=== PATIENT | female | born 1985 | race Caucasian/White ===

== ENCOUNTER 2016-06-07 22:50 | Emergency (ER) | payer OTHER ==
[~2016-06-07] VITALS: Ht 152.4 cm; Wt 70.0 kg
[2016-06-07 22:55] VITALS: BP 137/93; PULSE 99; RESP 20; TEMP 98.9; O2SAT 95
[2016-06-07] MEDS ORDERED: ZOFR4TAB3 SL (23:17)
[2016-06-07] MEDS ORDERED: PAXI10TA2 PO (23:17)
[2016-06-07] MEDS ORDERED: OMEGCAP PO (23:17)
[2016-06-07] MEDS ORDERED: PANT40TA3 PO (23:17)
[2016-06-07] MEDS ORDERED: VITA100T13 PO (23:17)
[2016-06-07] MEDS ORDERED: CHLO25CA2 PO (23:17)
[2016-06-07 23:37] LABS: AUTOMATED NEUTROPHIL # 4.4 TH/MM3 (1.8-7.7); BASOPHIL % 0.6 % (0.0-2.0); EOSINOPHIL % 0.7 % (0.0-4.0); HEMO FLAGS DIFF FINAL; LYMPH % 29.3 % (9.0-44.0); LYMPHOCYTE # 1.9 TH/MM3 (1.0-4.8); MEAN CELL VOLUME 96.3 FL (80.0-100.0); MEAN CORPUSCULAR HEMOGLOBIN 33.8 PG (27.0-34.0); MEAN CORPUSCULAR HGB CONC 35.1 % (32.0-36.0); MONO % 3.2 % (0.0-8.0); NEUT % 66.2 % (16.0-70.0); PLATELET COUNT 142 TH/MM3 (150-450); RED BLOOD COUNT 4.37 MIL/MM3 (4.00-5.30); RED CELL DISTRIBUTION WIDTH 14.4 % (11.6-17.2); WHITE BLOOD COUNT 6.6 TH/MM3 (4.0-11.0)
--- NOTE | 2016-06-07 23:43 | PD ---
HPI Chief Complaint: OD/ Ingestion Time Seen by Provider: 22:59 Travel History International Travel<30 days: No Contact w/Intl Traveler<30days: No Traveled to known affect area: No History of Present Illness HPI Patient's 30 years old and arrives by EMS. She argued with her family tonight and then drank alcohol, 2 drink equivalents. She took 3 tablets of Librium about 8 hours prior to ER arrival and then another 3 tablets of Librium about 2- 1/2 hours prior to ER arrival. Police were notified and the patient arrives as a Anguiano act. She has been feeling quite depressed and suffers with PTSD, major depression. She has been compliant with Paxil and Protonix. She complains of a generalized constant abdominal pain. Pt reports prior Tylenol overdose with subsequent liver injury however denies Tylenol ingestion tonight. Patient states she has been drinking lately 5-6 drinks per night for the past week or so. She does is due to PTSD. PFSH Past Medical History Anxiety: Yes Depression: Yes Diminished Hearing: No Medical other: Yes (PTSD, liver failure) Tetanus Vaccination: < 5 Years Influenza Vaccination: No ?: Not LMP: 05/21/2016 : 1 Para: 0 Miscarriage: 1 : 0 Past Surgical History Surgical History: No Previous Surgery Social History Alcohol Use: Yes (2 shots of fireball) Tobacco Use: No Substance Use: No Allergies-Medications (Allergen,Severity, Reaction): Coded Allergies: No Known Allergies (Unverified , 06/07/16) Reported Meds & Prescriptions Reported Meds & Active Scripts Active Reported Vitamin B-1 (Thiamine Mononitrate) 100 Mg Tab 1 Tab PO ONCE Chlordiazepoxide (Chlordiazepoxide HCl) 25 Mg Cap 25 Mg PO BID PRN Paxil (Paroxetine HCl) 10 Mg Tab 10 Mg PO DAILY Zofran Odt (Ondansetron Odt) 4 Mg Tab 4 Mg SL Q6HR PRN Pantoprazole (Pantoprazole Sodium) 40 Mg Tab 40 Mg PO DAILY [place]-3 Fish Oil/Vitamin (Fish Oil-Cholecalciferol) 1,000-1,000 Mg Cap 1 Cap PO DAILY Review of Systems Except as stated in HPI: all other systems reviewed are Neg Physical Exam Narrative GENERAL: 30 yo F, pleasant, WNWD SKIN: Warm and dry. HEAD: Atraumatic. Normocephalic. EYES: Pupils equal and round. No scleral icterus. No injection or drainage. ENT: No nasal bleeding or discharge. Mucous membranes pink and moist. NECK: Trachea midline. No JVD. CARDIOVASCULAR: Regular rate and rhythm. RESPIRATORY: No accessory muscle use. Clear to auscultation. Breath sounds equal bilaterally. GASTROINTESTINAL: Soft. Diffuse nonspecific tenderness. MUSCULOSKELETAL: Extremities without clubbing, cyanosis, or edema. No obvious deformities. NEUROLOGICAL: Awake and alert. No obvious cranial nerve deficits. Motor grossly within normal limits. Five out of 5 muscle strength in the arms and legs. Normal speech. PSYCHIATRIC: Tearful. Apparent SA. EtOH on breath. Data Data Last Documented VS Vital Signs Date Time Temp Pulse Resp B/P Pulse Ox O2 Delivery O2 Flow Rate FiO2 06/08/16 01:46 95 18 114/60 96 Room Air 06/07/16 22:55 98.9 Orders Electrocardiogram (06/07/16 22:59) Complete Blood Count With Diff (06/07/16 22:59) Comprehensive Metabolic Panel (06/07/16 22:59) Iv Access Insert/Monitor (06/07/16 22:59) Ecg Monitoring (06/07/16 22:59) Oximetry (06/07/16 22:59) Psych Screen (06/07/16 22:59) Drug Screen, Random Urine (06/07/16 22:59) Alcohol (Ethanol) (06/07/16 22:59) Salicylates (Aspirin) (06/07/16 22:59) Tylenol (Acetaminophen) (06/07/16 22:59) Alcohol Withdrawal Asmt-Ciwa ONCE (06/08/16 01:08) Flumazenil Inj (Romazicon Inj) (06/08/16 01:15) Lorazepam (Ativan) (06/08/16 01:15) Lorazepam Inj (Ativan Inj) (06/08/16 01:15) Lorazepam (Ativan) (06/08/16 01:15) Lorazepam Inj (Ativan Inj) (06/08/16 01:15) Lorazepam Inj (Ativan Inj) (06/08/16 01:15) Lorazepam Inj (Ativan Inj) (06/08/16 01:15) Labs Laboratory Tests Test 06/07/16 23:30 White Blood Count 6.6 TH/MM3 Red Blood Count 4.37 MIL/MM3 Hemoglobin 14.8 GM/DL Hematocrit 42.0 % Mean Corpuscular Volume 96.3 FL Mean Corpuscular Hemoglobin 33.8 PG Mean Corpuscular Hemoglobin 35.1 % Concent Red Cell Distribution Width 14.4 % Platelet Count 142 TH/MM3 Mean Platelet Volume 7.5 FL Neutrophils (%) (Auto) 66.2 % Lymphocytes (%) (Auto) 29.3 % Monocytes (%) (Auto) 3.2 % Eosinophils (%) (Auto) 0.7 % Basophils (%) (Auto) 0.6 % Neutrophils # (Auto) 4.4 TH/MM3 Lymphocytes # (Auto) 1.9 TH/MM3 Monocytes # (Auto) 0.2 TH/MM3 Eosinophils # (Auto) 0.0 TH/MM3 Basophils # (Auto) 0.0 TH/MM3 CBC Comment DIFF FINAL Differential Comment Sodium Level 138 MEQ/L Potassium Level 5.3 MEQ/L Chloride Level 104 MEQ/L Carbon Dioxide Level 22.8 MEQ/L Anion Gap 11 MEQ/L Blood Urea Nitrogen 8 MG/DL Creatinine 0.60 MG/DL Estimat Glomerular Filtration 119 ML/MIN Rate Random Glucose 92 MG/DL Calcium Level 9.0 MG/DL Total Bilirubin 0.5 MG/DL Aspartate Amino Transf 216 U/L (AST/SGOT) Alanine Aminotransferase 62 U/L (ALT/SGPT) Alkaline Phosphatase 243 U/L Total Protein 8.5 GM/DL Albumin 3.7 GM/DL Salicylates Level LESS THAN 1.7 MG/DL Acetaminophen Level LESS THAN 2.0 MCG/ML Ethyl Alcohol Level 376 MG/DL MDM Medical Decision Making Medical Screen Exam Complete: Yes Emergency Medical Condition: Yes Medical Record Reviewed: Yes Differential Diagnosis Altered mental status/psychosis due to infection/environmental exposure/ metabolic abnormality, polypharmacy, alcohol abuse/intoxication, illicit or prescribed drug abuse, malingering/secondary gain, non-organic psychiatric disease Narrative Course CBC & BMP Diagram 06/07/16 23:30 AST 216 ALT 62 Alk Phos 243 Total protein 8.5 Alcohol 376 Salicylates 1.7 APAP < 2.0 The history of present illness, ROS, physical exam, review of records and medical workup performed for today's visit have reasonably safely excluded organic etiologies for the patient's presenting complaint. We will continue to monitor the patient carefully in the ER until time of evaluation by the psychiatry service. We are available for any additional medical assistance if needed during the patient's ER course. Disposition per discretion of psychiatry is appreciated. Diagnosis Primary Impression: Benzodiazepine (tranquilizer) overdose Qualified Code: T42.4X4A - Benzodiazepine (tranquilizer) overdose, undetermined intent, initial encounter Additional Impressions: Alcohol intoxication Qualified Code: F10.129 - Alcohol intoxication, with unspecified complication Abdominal pain Qualified Code: R10.9 - Abdominal pain, unspecified location Benji Hu MD Jun 07, 2016 23:43
[2016-06-07 23:45] VITALS: BP 137/80; PULSE 85; RESP 16; O2SAT 98
[2016-06-08] VITALS (9 sets, daily range): BP systolic 114–144; BP diastolic 60–83; PULSE 80–95; RESP 16–18; TEMP 98.3; O2SAT 96–98
[2016-06-08 00:46] LABS: ALKALINE PHOSPHATASE 243 U/L (45-117); ALT (GPT) 62 U/L (10-53); ANION GAP 11 MEQ/L (5-15); AST (GOT) 216 U/L (15-37); BICARBONATE 22.8 MEQ/L (21.0-32.0); BLOOD UREA NITROGEN 8 MG/DL (7-18); CHLORIDE 104 MEQ/L (98-107); GLOMERULAR FILTRATION RATE 119 ML/MIN (>89); POTASSIUM 5.3 MEQ/L (3.5-5.1); SODIUM (NA) 138 MEQ/L (136-145); TOTAL BILIRUBIN ADULT 0.5 MG/DL (0.2-1.0)
[2016-06-08 00:49] LABS: ACETAMINOPHEN LESS THAN 2.0 MCG/ML (10.0-30.0)
[2016-06-08] MEDS ORDERED: LORazepam 2 MG/ML VIAL IV PUSH PRN ×4 (01:15)
[2016-06-08] MEDS ORDERED: LORazepam 2 MG TAB PO PRN (01:15)
[2016-06-08] MEDS ORDERED: FLUMAZENIL 0.5 MG/5 ML VIAL IV PUSH PRN (01:15)
[2016-06-08] MEDS: LORazepam 1 MG TAB PO PRN ×3 (01:26→10:14)
[2016-06-08] MEDS ORDERED: ONDANSETRON HCL 4 MG/2 ML VIAL IV PUSH ONE (08:30)
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
--- NOTE | 2016-06-08 14:27 | EKG ---
Date Performed: 06/07/2016 Time Performed: 23:04:36 PTAGE: 30 years EKG: Sinus rhythm NORMAL ECG NO PREVIOUS TRACING DOCTOR: William Salguero Interpretating Date/Time 06/08/2016 14:49:20
== END 2016-06-08 12:27 | disposition home or self-care (01) ==
LOC: NEPE 22:50 → NEPA 06-08 12:27
DX: T42.4X1A Poisoning by benzodiazepines, accidental (unintentional), initial encounter (principal); F41.8 Other specified anxiety disorders; R10.9 Unspecified abdominal pain; F10.129 Alcohol abuse with intoxication, unspecified
CPT/HCPCS: 80053; 80320; 85025; 93005; 96374; 96375; 99284; J2060; J2405; 80329; G0480